=== PATIENT | male | born 1995 | race Caucasian/White ===

== ENCOUNTER 2023-10-05 18:32 | Emergency (ER) | payer BC, SELFPAY ==
[2023-10-05] MEDS ORDERED: Lidocaine 1% (PF) 30 ML VIAL ONE (19:17)
[2023-10-05] MEDS ORDERED: Boostrix 0.5 ML (Tdap) VIAL (>/=7 yrs of age) ONE (19:32)
[2023-10-05] MEDS ORDERED: Bacitracin 1 PK ONE (20:09)
== END 2023-10-05 20:25 | disposition home or self-care (01) ==
LOC: NAV ERS 18:32
DX: S60.551A Superficial foreign body of right hand, initial encounter (principal); L03.113 Cellulitis of right upper limb; F17.290 Nicotine dependence, other tobacco product, uncomplicated; X58.XXXA Exposure to other specified factors, initial encounter
CPT/HCPCS: 10060; 90471; 90715; J2001